=== PATIENT | male | born 1955 | race Caucasian/White ===

== ENCOUNTER 2021-02-24 09:29 | Emergency (ER) | payer MEDICARE, SELFPAY ==
[2021-02-24 09:35] VITALS: BP 148/93; PULSE 85; RESP 19; TEMP 35.8; O2SAT 98; BMI 29.5
--- NOTE | 2021-02-24 10:21 | ED.WOUNDLAC ---
HPI - Wound/Laceration General Chief Complaint: Wound/Laceration Stated Complaint: FALL ARM LAC Time Seen by Provider: 02/24/21 10:08 Source: patient Mode of arrival: ambulatory Limitations: no limitations History of Present Illness HPI narrative: 65-year-old male presenting to the ED with a Skin tear to left arm status post mechanical fall prior to arrival. He reports that he was going down cement stairs and he lost his balance but had no symptoms prior to the fall he fell onto his left arm and sustained a few skin tears. He reports that he is up-to-date on his tetanus. He denies any bony tenderness. He denies any head injury or loss of consciousness although he is currently on Eliquis. He reports no symptoms after the fall. Denies any other injuries complaints or concerns at this time. Onset (ago): minute(s) (Prior to arrival) Extremity Location: left: forearm Place: outdoors Patient tetanus UTD: Yes Context: accidental Associated symptoms: none Treatments prior to arrival: bandage Related Data Previous Rx's Medication Instructions Recorded cephalexin 500 mg capsule 500 mg PO Q6H 10 Days #40 cap 02/24/21 Allergies Allergy/AdvReac Type Severity Reaction Status Date / Time No Known Allergies Allergy Verified 02/24/21 09:34 Review of Systems Review of Systems: Constitutional : No Fever, No Chills, Cardiovascular : No Chest Pain, No SOB Respiratory : No Dyspnea Gastrointestinal : No abdominal pain Musculoskeletal : No Joint Swelling Skin : positive skin tear, no laceration, No Foreign bodies, No rash, No surrounding erythema Neuro : No Weakness, No Numbness/tingling Psych : No SI/HI/thoughts of self injury Yes all other systems are reviewed and are negative COUNTS INCLUDE 234 BEDS AT THE [facility] Past Medical History Attestation statement: The following information was validated with the patient. Social History Social History Advance Directives: No Physical Exam Vital Signs: Vital Signs: Last Vital Signs Temp 96.5 F L 02/24/21 09:35 Pulse 85 02/24/21 09:35 Resp 19 02/24/21 09:35 BP 148/93 H 02/24/21 09:35 Pulse Ox 98 02/24/21 09:35 Body Mass Index 29.5 vital signs have been reviewed as normal and appeared to be correct. Blood pressure hypertensive 140/93. Heart rate normal. Respiration rate normal. Temperature normal. Oxygen saturation normal. Appearance: Alert. Oriented X3. No acute distress. Head: Normal external exam. Normocephalic. Atraumatic. Eyes: PERRLA. EOMI. Conjunctiva and sclera normal. Eyelids normal. ENT: Pharynx normal. Uvula midline. Moist mucous membranes. Neck: Normal inspection. Neck supple. FROM. CVS: Normal heart rate and rhythm. Respiratory: No respiratory distress. Painless inspiration. Skin: To the left forearm there are 4 superficial skin abrasions no active bleeding or foreign bodies noted. No signs of infection. The rest of the Skin warm and dry. Normal skin color. Normal skin turgor. No additional rashes/lesions/lacerations noted. Extremities: Patient does not have any bony tenderness to the left forearm. Extremities exhibit normal range of motion. Extremities nontender. Neuro: Oriented X 3. No motor deficit. No sensory deficit. Reflexes normal. Normal steady gait. No focal neuro deficits noted. Vascular: + radial pulses/+ 2 distal pedal pulses/+2 dorsalis pedis b/l. Normal cap refill. No cyanosis noted to upper extremity nails and lower extremity toes nails. Course Course Course Narrative: 65-year-old male presenting to the ED after mechanical fall going down the steps prior to arrival where he lost his balance did not have any symptoms prior to the fall and did not have any symptoms after the fall only the skin tears to his left forearm. Denies head injury or loss of consciousness. He is on Eliquis. Tetanus is updated. On exam he has 4 superficial skin tears although the skin is not there anymore therefore I placed xero-form along with nonadherent clean dressing will DC home with antibiotics and instructions return if any new or worsening symptoms to follow up with primary care provider. Patient understands agrees with this plan. MDM - Wound/Laceration Medical Records Attestation: I reviewed the patient's medical records. Discharge Plan Discharge Clinical Impression: Fall, Skin tear of left upper extremity Patient Disposition: Home, Self-Care Instructions: Fall Prevention for Older Adults (ED), Skin Tear (ED) Prescriptions: New cephalexin 500 mg capsule 500 mg PO Q6H 10 Days Qty: 40 RF: 0 Referrals: Physician,Nonstaff [Primary Care Provider] - 2 days (your pcp) Stand Alone Forms: Work/School Release Print Language: Icelandic
== END 2021-02-24 10:36 | disposition home or self-care (01) ==
PROVIDERS: Emergency Provider Emergency Medicine Emergency Medical Services
DX: S51.812A Laceration without foreign body of left forearm, initial encounter (principal); W10.9XXA Fall (on) (from) unspecified stairs and steps, initial encounter; Y93.9 Activity, unspecified; Y92.89 Other specified places as the place of occurrence of the external cause; Y99.9 Unspecified external cause status
CPT/HCPCS: 99283